=== PATIENT | female | born 1985 | race Caucasian/White ===

== ENCOUNTER 2018-08-31 10:53 | Inpatient (IN) | payer OTHER ==
[~2018-08-31] VITALS: Ht 162.6 cm; Wt 2.7 kg
[2018-08-31] MEDS ORDERED: PROPRANOLOL HCL60 M1 PO (11:41)
[2018-09-22] MEDS ORDERED: OXYC1TAB9 PO (10:15)
== END 2018-09-22 13:52 | DRG 788 ==
LOC: OB/GYN 09-19 08:44 → O/R 09-19 08:44 → OB/GYN 09-19 08:45
PROVIDERS: ADMIT Obstetrics & Gynecology Maternal & Fetal Medicine
PROC: 4A1HXCZ Monitoring of Products of Conception, Cardiac Rate, External Approach (ICD-10-PCS; 2018-09-19)
PROC: 10D00Z1 Extraction of Products of Conception, Low, Open Approach (ICD-10-PCS; principal; 2018-09-19 08:45)
DX: O34.211 Maternal care for low transverse scar from previous cesarean delivery (principal); O82 Encounter for cesarean delivery without indication; Z3A.39 39 weeks gestation of pregnancy; Z37.0 Single live birth; Z22.330 Carrier of Group B streptococcus

== ENCOUNTER 2018-09-04 13:29 | Outpatient (CLI) | payer OTHER ==
[~2018-09-04 13:29] MED LIST: PROPRANOLOL HCL60 M1 PO
== END 2018-09-04 15:34 | disposition home or self-care (01) ==
LOC: NST 13:29
DX: Z34.83 Encounter for supervision of other normal pregnancy, third trimester (principal)